=== PATIENT | male | born 1995 | race Hispanic/Latino ===

== ENCOUNTER 2022-08-12 21:40 | Emergency (ER) | payer SELFPAY | END 2022-08-12 22:25 | disposition left against medical advice (07) | LOC: CSHERS 21:40 | DX: S62.143A Displaced fracture of body of hamate [unciform] bone, unspecified wrist, initial encounter for closed fracture (principal); F17.210 Nicotine dependence, cigarettes, uncomplicated; W18.30XA Fall on same level, unspecified, initial encounter | CPT/HCPCS: 36416 ==